=== PATIENT | female | born 1955 | race American Indian/Alaskan Native ===

== ENCOUNTER 2018-10-10 09:06 | Outpatient (CLI) | payer BC ==
[2018-10-10 09:24] LABS: Hematocrit 39.1 % (30.3-42.9); Hemoglobin 12.7 gm/dl (10.1-14.3); Mean Corpuscular HGB Conc 33 % (30-34); Mean Corpuscular Volume 84 fl (79-97); Platelet Count 176 K/mm3 (140-440); Red Blood Count 4.65 M/mm3 (3.65-5.03); Red Cell Distribution Width 14.4 % (13.2-15.2)
[2018-10-10 09:40] LABS: Alanine Aminotransferase 15 units/L (7-56); Albumin 4.4 g/dL (3.9-5); BUN/Creatinine Ratio 32; Blood Urea Nitrogen 32 mg/dL (7-17); Calcium 10.1 mg/dL (8.4-10.2); Chol/HDL Ratio 3.44 %; HDL Cholesterol 50 mg/dL (40-59); Hemolysis Index 4; LDL Cholesterol,Direct 125 mg/dL (50-130)
== END 2018-10-10 09:07 | disposition home or self-care (01) ==
LOC: LAB 09:06
PROVIDERS: ATTEND Nurse Practitioner Gerontology
DX: I10 Essential (primary) hypertension (principal)
CPT/HCPCS: 36415; 80053; 80061; 84443; 85027

== ENCOUNTER 2018-10-21 07:25 | Outpatient (CLI) | payer BC ==
--- NOTE | 2018-10-22 23:03 | Treadmill Report ---
PROCEDURE: Exercise treadmill test The patient's resting EKG showed sinus bradycardia, rate 39 beats per minute, voltage criteria for left ventricular hypertrophy, otherwise normal ECG. EXERCISE TEST: The patient exercised for a total of 8 minutes and 37 seconds on the Marcus protocol achieving a maximum workload of 9.8 METS. Test was terminated because of significant dizziness. No chest pain. The patient was mildly dyspneic. The patient's resting heart rate was 39 beats per minute with a peak heart rate of 102 beats per minute, which was 64% of the predicted maximum heart rate. The patient's resting blood pressure was 145/58 with a peak blood pressure 169/69 mmHg. The patient showed no significant ST-T abnormalities or arrhythmias at peak exercise. CONCLUSION: 1. Incomplete stress test as the patient did not achieve the target heart rate. 2. Good exercise capacity. 3. Negative test for angina and ischemia within the limitations of the test. 4. Suggest clinical correlation. Consider Lexiscan or nuclear study if indicated. JOB# [id number] RITO/LASHAE
== END 2018-10-21 07:26 | disposition home or self-care (01) ==
LOC: CARD 07:25
PROVIDERS: ATTEND Family Medicine
DX: I07.1 Rheumatic tricuspid insufficiency (principal); R00.1 Bradycardia, unspecified
CPT/HCPCS: 93017; 93306

== ENCOUNTER 2020-08-17 07:15 | Day surgery (SDC) | payer BC ==
[2020-08-17] MEDS ORDERED: WATER FOR IRRIG STERILE 250 ML BOTTLE IR ONE (07:36)
[2020-08-17] MEDS ORDERED: WATER FOR IRRIG STERILE 1,000 ML BOTTLE ONE (07:36)
[2020-08-17] MEDS ORDERED: SODIUM CHLORIDE 0.9% 1000 ML 1,000 ML ONE (07:44)
--- NOTE | 2020-08-17 07:45 | Anesthesia Consultation ---
Anesthesia Consult and Med Hx Date of service: 08/17/20 - Airway Anesthetic Teeth Evaluation: Good (uneven teeth) ROM Head & Neck: Adequate Mental/Hyoid Distance: Adequate Mallampati Class: Class II Intubation Access Assessment: Probably Good - Pre-Operative Health Status ASA Pre-Surgery Classification: ASA2 Proposed Anesthetic Plan: MAC - Cardiovascular System Hx Hypertension: Yes
--- NOTE | 2020-08-17 07:47 | Anesthesia Day of Surgery ---
Anesthesia Day of Surgery - Day of Surgery Patient Examined: Yes Patient H&P Reviewed: Yes Patient is NPO: Yes
[2020-08-17] MEDS ORDERED: propofoL 200 MG/20 ML VIAL IV ONE (07:50)
[2020-08-17] MEDS ORDERED: LIDOCAINE MPF (2%) 20 MG/1 ML VIAL 5 ML ONE (07:51)
--- NOTE | 2020-08-17 08:23 | Operative Report ---
DATE OF SURGERY: 08/17/2020 PROCEDURE: Colonoscopy. INDICATION: Colon cancer screening. MEDICATIONS: Propofol per [employer]NACE HELPER. COMPLICATIONS: None. DESCRIPTION OF PROCEDURE: The patient was brought to the procedure suite. The patient had the procedure discussed with her at length. All risks, complications, and benefits were discussed after which the patient signed for the procedure performed. The patient was placed in left lateral decubitus position. Rectal exam performed prior to insertion of scope. After adequate sedation medications as above, scope inserted into the rectum and brought to the level of cecum. Ileocecal valve, appendiceal orifice, cecal strap were adequately visualized. Colonoscope was then removed and mucosa of colon visualized. Prep quality for this procedure was fair. The patient's vital signs remained stable throughout the procedure. FINDINGS: There were no mass lesions, polyps, or diverticula noted during this procedure. Retroflexion view performed in the rectum showed small internal hemorrhoids. The patient tolerated the procedure well. No complications during the procedure. IMPRESSION: 1. Internal hemorrhoids. 2. Otherwise, normal colonoscopy. 3. Prep quality was fair. PLAN: 1. Continue current medications with high fiber diet. 2. Repeat colonoscopy for routine screening in 5 years. TID: [id number] RECEIPT: [id number] [facility]/SHELLI
[2020-08-17 09:22] VITALS: BP 158/64
--- NOTE | 2020-08-17 14:30 | Post Anesthesia Evaluation ---
- Post Anesthesia Evaluation Patient Participated: Yes Airway Patent: Yes Stable Respiratory Function: Yes Nausea/Vomiting: No Temp > 96.8F: Yes Pain Manageable: Yes Adequeate Hydration: Yes Anesthesia Complications: No Block Receding Appropriately: Not Applicable Patient on Ventilator: No
--- NOTE | 2020-08-18 10:39 | History and Physical Report ---
ADMIT DATE: 08/17/2020 INDICATION: Colon cancer screening. HISTORY OF PRESENT ILLNESS: The patient is a 64-year-old female with no significant GI complaints, who presents for colon cancer screening. She denies any specific GI problems or complaints at this time. PAST MEDICAL HISTORY: See chart. MEDICATIONS: See chart. ALLERGIES: No known drug allergies. SOCIAL HISTORY: Denies alcohol, tobacco or drug use. FAMILY HISTORY: ____ colon cancer, IBD, or liver disease. REVIEW OF SYSTEMS: GENERAL: Benign. PHYSICAL EXAMINATION: VITALS: Stable. GENERAL: Benign. ASSESSMENT: A 64-year-old female who presents for colon cancer screening. PLAN: Colonoscopy today. Full H and P will be added to the chart. TID: [id number] RECEIPT: [id number] [facility]/GIANNI/ANNABEL
== END 2020-08-17 09:03 | disposition home or self-care (01) ==
LOC: GIO 07:15
PROVIDERS: ATTEND Internal Medicine Gastroenterology
DX: Z12.11 Encounter for screening for malignant neoplasm of colon (principal); K64.8 Other hemorrhoids; I10 Essential (primary) hypertension; Z98.890 Other specified postprocedural states
CPT/HCPCS: 45378; J2704; J7030

== ENCOUNTER 2021-01-14 08:38 | Outpatient (CLI) | payer BC ==
[2021-01-14 09:40] LABS: Hematocrit 38.7 % (30.3-42.9); Hemoglobin 11.9 gm/dl (10.1-14.3); Mean Corpuscular HGB Conc 31 % (30-34); Mean Corpuscular Volume 86 fl (79-97); Platelet Count 229 K/mm3 (140-440); Red Blood Count 4.51 M/mm3 (3.65-5.03); Red Cell Distribution Width 15.3 % (13.2-15.2)
[2021-01-14 10:07] LABS: Chol/HDL Ratio 2.56 %
[2021-01-14 10:08] LABS: Alanine Aminotransferase 16 units/L (7-56); Albumin 4.6 g/dL (3.9-5); BUN/Creatinine Ratio 25; Blood Urea Nitrogen 20 mg/dL (7-17); Calcium 9.7 mg/dL (8.4-10.2); Hemolysis Index 3
[2021-01-14 12:58] LABS: Creatinine,Urine 180.4 mg/dL (0.1-20.0); Microalbumin/Creatinine Ratio 14.9 ug/mg
--- NOTE | 2021-01-14 17:52 | Mammography Report ---
DIGITAL SCREENING MAMMOGRAM WITH CAD, 01/14/2021 CLINICAL INFORMATION / INDICATION: Routine screening mammography. TECHNIQUE: Digital bilateral 2D mammography was obtained in the craniocaudal and mediolateral obliqu e projections. This examination was interpreted with the benefit of Computer-Aided Detection analysis . COMPARISON: 12/01/2009 FINDINGS: Breast Density: There are scattered areas of fibroglandular density. No dominant mass, suspicious calcifications, or architectural distortion in either breast. No interval change. IMPRESSION: No mammographic evidence of malignancy. Follow up recommendation: Routine yearly BI-RADS Category 1: Negative. A "normal" or negative report should not discourage follow up or biopsy of a clinically significant f inding. A written summary of these findings will be mailed to the patient. The patient will be entered into a mammography reporting system which will generate a reminder letter for the patient's next appointmen t at the appropriate interval. The [employer] recommends yearly mammograms starting at age 40 and continuing as l kyler as a woman is in good health. Breast MRI is recommended for women with an approximate 20-25% or greater lifetime risk of breast cancer, including women with a strong family history of breast or ova rodríguez cancer or who have been treated for Hodgkin's disease. Signer Name: Radha Post MD Signed: 01/14/2021 5:47 PM Workstation Name: [email or web address] [email or web address]
== END 2021-01-14 08:39 | disposition home or self-care (01) ==
LOC: MAMMO 08:38
PROVIDERS: ATTEND Family Medicine
DX: Z12.31 Encounter for screening mammogram for malignant neoplasm of breast (principal); E78.5 Hyperlipidemia, unspecified; I10 Essential (primary) hypertension
CPT/HCPCS: 36415; 77067; 80053; 80061; 82043; 85027

== ENCOUNTER 2021-03-17 09:55 | Outpatient (CLI) | payer BC | END 2021-03-17 09:56 | disposition home or self-care (01) | LOC: LAB 09:55 | PROVIDERS: ATTEND Obstetrics & Gynecology | DX: Z51.81 Encounter for therapeutic drug level monitoring (principal); F20.0 Paranoid schizophrenia; F63.9 Impulse disorder, unspecified; F42.9 Obsessive-compulsive disorder, unspecified | CPT/HCPCS: 36415 ==

== ENCOUNTER 2021-07-05 06:47 | Day surgery (SDC) | payer BC ==
[2021-07-05] MEDS ORDERED: SODIUM CHLORIDE 0.9% 1000 ML 1,000 ML IV SCH (07:00)
[2021-07-05] MEDS ORDERED: WATER FOR IRRIG STERILE 250 ML BOTTLE IR ONE (07:17)
[2021-07-05] MEDS ORDERED: WATER FOR IRRIG STERILE 1,000 ML BOTTLE ONE (07:17)
[2021-07-05] MEDS ORDERED: propofoL 200 MG/20 ML VIAL IV ONE (07:29)
--- NOTE | 2021-07-05 07:35 | Anesthesia Consultation ---
Anesthesia Consult and Med Hx - Airway Anesthetic Teeth Evaluation: Good, Partials ROM Head & Neck: Adequate Mental/Hyoid Distance: Adequate Mallampati Class: Class II Intubation Access Assessment: Probably Good - Pulmonary Exam CTA: Yes - Cardiac Exam Cardiac Exam: RRR - Pre-Operative Health Status ASA Pre-Surgery Classification: ASA2 Proposed Anesthetic Plan: MAC - Pulmonary Hx Smoking: No Hx Asthma: No Hx Respiratory Symptoms: No Hx Sleep Apnea: No - Cardiovascular System Hx Hypertension: Yes Hx Heart Attack/AMI: No - Central Nervous System Hx Seizures: No CVA: No - Gastrointestinal Hx Gastroesophageal Reflux Disease: Yes - Endocrine Hx Renal Disease: No Hx Liver Disease: No Hx Non-Insulin Dependent Diabetes: No Hx Thyroid Disease: No - Hematic Hx Anemia: No Hx Sickle Cell Disease: No - Other Systems Hx Alcohol Use: No Hx Substance Use: No Hx Cancer: No Hx Obesity: No - Additional Comments Anesthesia Medical History Comments: no hx of anesthesia complications
--- NOTE | 2021-07-05 07:36 | Anesthesia Day of Surgery ---
Anesthesia Day of Surgery - Day of Surgery Patient Examined: Yes Patient H&P Reviewed: Yes Patient is NPO: Yes
[2021-07-05] MEDS ORDERED: LIDOCAINE MPF (2%) 20 MG/1 ML VIAL 5 ML ONE (07:42)
--- NOTE | 2021-07-05 08:18 | Operative Report ---
DATE OF SURGERY: 07/05/2021 INDICATIONS: 1. GERD. 2. Dyspepsia. MEDICATIONS: Propofol per [employer] SALES SPECIALIST. COMPLICATIONS: None. DESCRIPTION OF PROCEDURE: The patient was brought to the procedure suite. The patient had the procedure discussed with her at length. All risks, complications, and benefits discussed, after which the patient signed for the procedure to be performed. The patient was placed in the left lateral decubitus position. Mouth block placed in the patient's oral cavity. After adequate sedation and medications above, endoscope placed in the mouth and brought to the level of the second portion of duodenum. Retroflexion view performed. The patient's vital signs remained stable throughout the procedure. FINDINGS: There is an irregular Z line, probably from acid reflux noted 34 cm from the gums. Biopsies were taken and sent for pathology. There is a 2.5 cm hiatal hernia at GE junction. The esophagus otherwise appeared to be normal. There is mild antral gastritis noted. Biopsies were taken and sent to pathology. Remaining stomach otherwise appeared to be normal. Duodenum appeared to be normal. Retroflexion view performed in the stomach showed no other pathology other than noted above. The patient tolerated the procedure well. No complications noted in procedure. IMPRESSION: 1. Hiatal hernia. 2. Irregular Z line, biopsies performed. 3. Otherwise, normal esophagus. 4. Gastritis with biopsies performed. 5. Otherwise, normal stomach. 6. Normal duodenum. RECOMMENDATIONS: 1. Follow up biopsy results. 2. If H. pylori positive, will treat. 3. PPI daily. 4. Follow up in clinic in 6-12 weeks. TID: [id number] RECEIPT: [id number] [facility]LIZZY
[2021-07-05 11:33] VITALS: BP 124/69
== END 2021-07-05 08:45 | disposition home or self-care (01) ==
LOC: GIO 06:47
PROVIDERS: ATTEND Internal Medicine Gastroenterology
DX: K21.9 Gastro-esophageal reflux disease without esophagitis (principal); K29.60 Other gastritis without bleeding; K44.9 Diaphragmatic hernia without obstruction or gangrene; I10 Essential (primary) hypertension; Z79.899 Other long term (current) drug therapy; Z98.51 Tubal ligation status; Z98.890 Other specified postprocedural states
CPT/HCPCS: 43239; 88305; 88342; J2704; J7030